=== PATIENT | female | born 1990 | race Asian ===

== ENCOUNTER 2021-10-19 22:39 | Outpatient (CLI) | payer MEDICAID, OTHER ==
[2021-10-20 00:33] VITALS: BP 99/48
--- NOTE | 2021-10-20 03:25 | Ultrasound Report ---
US OB follow up INDICATION / CLINICAL INFORMATION: Leakage of fluid COMPARISON: None available. TECHNIQUE: Using a transcutaneous probe, multiple grayscale, color Doppler, and spectral Doppler imag es of the uterus and fetus were captured and stored. FINDINGS: Single cephalic fetus with heart rate of 1 37 bpm. Amniotic fluid index is within normal limits measuring 9.8 cm. Biparietal Diameter = 9.1 cm = 36, 6 weeks, days Head Circumference = 33.6 cm = 38, 3 weeks, days Abdominal Circumference = 32.1 cm = 36, 0 weeks, days Femur Length = 7.1 cm = 36, 4 weeks, days Average Ultrasound Age (AUA) = 37, 0 weeks, days. EDC 11/10/2021. Based on last menstrual period of 01/18/2021, clinical estimate gestational age is 39 weeks 2 days. Estimated weight = 2960 g. Growth percentile 12. IMPRESSION: 1. Single living fetus with estimated weight of 2960 g and amniotic fluid index of 9.8 cm. Signer Name: Bob Chatman II, MD Signed: 10/20/2021 3:20 AM Workstation Name: [id number]
== END 2021-10-20 02:50 | disposition home or self-care (01) ==
LOC: TRG 22:39 → APU 22:41 → TRG 10-20 02:50 → APU 10-20 03:06
PROVIDERS: ATTEND Obstetrics & Gynecology Gynecology
DX: Z34.93 Encounter for supervision of normal pregnancy, unspecified, third trimester (principal); Z3A.38 38 weeks gestation of pregnancy
CPT/HCPCS: 36415; 76816; 84112

== ENCOUNTER 2021-10-25 11:45 | Outpatient (CLI) | payer OTHER ==
--- NOTE | 2021-10-25 13:45 | Ultrasound Report ---
US OB follow up, US OB BPP wo non-stress INDICATION / CLINICAL INFORMATION: well-being. COMPARISON: 10/20/2021 FINDINGS: Single live intrauterine . MEASUREMENTS: - Biparietal Diameter = 9.0 cm = 36 weeks 3 days - Head Circumference = 33.5 cm = 38 weeks 2 days - Abdominal Circumference = 33.3 cm = 37 weeks 1 day - Femur Length = 7.3 cm = 37 weeks 4 days - Estimated Weight (in grams, if calculated): 3174 Measurement correspond to an ultrasound age of 37 weeks and 3 days. BREATHING MOVEMENT = 2 GROSS BODY MOVEMENT = 2 TONE = 2 QUALITATIVE AMNIOTIC FLUID VOLUME = 2 TOTAL BIOPHYSICAL SCORE = 8/8 AMNIOTIC FLUID INDEX (cm) = 15.4 PRESENTATION: Cephalic. HEART RATE (beats per minute): 125 Additional findings: Anterior, right lateral placenta is free of the os. No placental lifting or sepa ration. No retroplacental hematoma. IMPRESSION: 1. Single live intrauterine with ultrasound age of 37 weeks and 3 days. No significant abno rmality. 2. biophysical profile = 8/8 3. Amniotic fluid index measures 15.4 cm, within normal limits. Signer Name: Thien Story MD Signed: 10/25/2021 1:40 PM Workstation Name: [employer]
[2021-10-25 14:57] VITALS: BP 104/64
--- NOTE | 2021-10-25 15:34 | Event Note ---
Date: 10/25/21 Charge nurse Silvia reported there's no staff available therefore scheduled section has to be rescheduled for this week on 10/28/21 and BPP 12/13 and ADELAIDA 15 on today's ultrasound. Office mgr for pt at the clinic notified by me.
== END 2021-10-25 17:53 | disposition home or self-care (01) ==
LOC: TRG 11:45 → LD 11:46 → TRG 17:53
PROVIDERS: ATTEND Obstetrics & Gynecology
DX: Z34.83 Encounter for supervision of other normal pregnancy, third trimester (principal); Z3A.39 39 weeks gestation of pregnancy
CPT/HCPCS: 76816; 76819